=== PATIENT | female | born 1955 | race Caucasian/White ===

== ENCOUNTER 2021-02-04 13:44 | Outpatient (CLI) | payer OTHER | END 2021-02-04 13:45 | disposition home or self-care (01) | LOC: BURCT 13:44 | PROVIDERS: ATTEND Nurse Practitioner Family | DX: R51.9 Headache, unspecified (principal) | CPT/HCPCS: 70450 ==

== ENCOUNTER 2021-02-09 18:41 | Emergency (ER) | payer OTHER ==
[2021-02-09] MEDS ORDERED: hydrOXYzine 25 MG TAB ONE (19:28)
[2021-02-09 19:42] LABS: #Lymphocytes 0.8 thou/uL (1.20-3.40); #Monocytes 0.4 thou/uL (0.11-0.59); #Neutrophils 3.6 thou/uL (1.40-6.50); %Basophils 0.6 % (0.0-1.0); %Eosinophils 0.7 % (0.0-10.0); %Lymphocytes 15.7 % (21.0-51.0); %Monocytes 7.9 % (0.0-10.0); %Neutrophils 75.1 % (42.0-75.0); Hemoglobin 12.6 g/dL (12.0-16.0); Mean Corpuscular HGB CONC 35.9 g/dL (32.0-36.0); Mean Corpuscular Hemoglobin 33.9 pg (27.0-31.0); Mean Corpuscular Volume 94.2 fL (78.0-98.0); Mean Platelet Volume 6.3 fL (7.4-10.4); Platelet Count 155 thou/uL (130-400); RBC Distribution Width 11.9 % (11.5-14.5); Red Blood Cell (RBC) Count 3.72 mill/uL (4.20-5.40); White Blood Cell (WBC) Count 4.8 thou/uL (4.8-10.8)
[2021-02-09 19:43] LABS: ALT (SGPT) 34 U/L (8-55); AST (SGOT) 20 U/L (5-34); Albumin 4.3 g/dL (3.4-4.8); Alkaline Phosphatase 77 U/L (40-110); Anion Gap 15 mmol/L (10-20); BUN (Urea Nitrogen) 7 mg/dL (9.8-20.1); Bilirubin, Total 3.6 mg/dL (0.2-1.2); Calc. Creatinine Clearance 0 mL/min (70-130); Calcium 8.3 mg/dL (7.8-10.44); Carbon Dioxide 21 mmol/L (23-31); Chloride 99 mmol/L (98-107); Globulin 2.9 g/dL (2.4-3.5); Glucose 122 mg/dL (80-115); Potassium 3.3 mmol/L (3.5-5.1); Protein, Total 7.2 g/dL (5.8-8.1); Sodium 132 mmol/L (136-145)
[2021-02-09 19:44] LABS: Large Platelets SLIGHT; MDiff Complete? YES
== END 2021-02-09 20:40 | disposition home or self-care (01) ==
LOC: BURERS 18:41
DX: F41.9 Anxiety disorder, unspecified (principal); R55 Syncope and collapse; I10 Essential (primary) hypertension
CPT/HCPCS: 71045; 80053; 83880; 84443; 84484; 85025; 93005

== ENCOUNTER 2021-03-28 13:43 | Outpatient (CLI) | payer OTHER | END 2021-03-28 13:44 | disposition home or self-care (01) | LOC: BURRAD 13:43 | PROVIDERS: ATTEND Nurse Practitioner Family | DX: R22.2 Localized swelling, mass and lump, trunk (principal) | CPT/HCPCS: 71046 ==

== ENCOUNTER 2021-04-14 10:22 | Outpatient (CLI) | payer OTHER ==
[2021-04-14] MEDS ORDERED: Iopamidol 370 76% 100 ML VIAL ONE (12:11)
== END 2021-04-14 10:23 | disposition home or self-care (01) ==
LOC: BURCT 10:22
PROVIDERS: ATTEND Nurse Practitioner Family
DX: Z01.818 Encounter for other preprocedural examination (principal); R22.2 Localized swelling, mass and lump, trunk
CPT/HCPCS: 36415; 71260; 82565; Q9967

== ENCOUNTER 2022-02-28 16:42 | Emergency (ER) | payer MEDICARE ==
[2022-02-28] MEDS ORDERED: predniSONE 20 MG TAB ONE (17:57)
== END 2022-02-28 18:02 | disposition home or self-care (01) ==
LOC: BURERS 16:42
DX: J06.9 Acute upper respiratory infection, unspecified (principal); I10 Essential (primary) hypertension
CPT/HCPCS: 99283; J7512

== ENCOUNTER 2025-07-23 11:27 | Outpatient (CLI) | payer MEDICARE | END 2025-07-23 11:28 | disposition home or self-care (01) | LOC: BURRAD 11:27 | PROVIDERS: ATTEND Family Medicine | DX: M79.604 Pain in right leg (principal); G89.29 Other chronic pain; M47.816 Spondylosis without myelopathy or radiculopathy, lumbar region | CPT/HCPCS: 72100 ==

== ENCOUNTER 2025-08-02 18:27 | Emergency (ER) | payer MEDICARE ==
[2025-08-02] MEDS ORDERED: Ketorolac Tromethamine 30 MG (1 mL) VIAL ONE (19:04)
[2025-08-02] MEDS ORDERED: Oseltamivir 75 MG CAP ONE (19:05)
[2025-08-02 19:15] LABS: #Basophils 0.0 thou/uL (0.0-0.2); #Eosinophils 0.0 thou/uL (0.0-0.7); #Lymphocytes 0.5 thou/uL (1.20-3.40); #Monocytes 0.3 thou/uL (0.11-0.59); #Neutrophils 2.0 thou/uL (1.40-6.50); %Basophils 0.9 % (0.0-1.0); %Eosinophils 0.0 % (0.0-10.0); %Lymphocytes 17.4 % (21.0-51.0); %Monocytes 9.2 % (0.0-10.0); %Neutrophils 72.5 % (42.0-75.0); ALT (SGPT) 64 U/L (Less than 34); AST (SGOT) 70 U/L (11-34); Albumin 3.8 g/dL (3.1-4.5); Alkaline Phosphatase 113 U/L (40-110); Anion Gap 19 mmol/L (10-20); BUN (Urea Nitrogen) 18 mg/dL (9.8-20.1); Bilirubin, Total 1.3 mg/dL (0.3-1.2); Calc. Creatinine Clearance 0 mL/min (70-130); Calcium 8.7 mg/dL (7.8-10.44); Carbon Dioxide 18 mmol/L (23-31); Chloride 100 mmol/L (98-107); Globulin 3.4 g/dL (2.4-3.5); Glucose 113 mg/dL (80-115); Hematocrit 33.3 % (36.0-47.0); Hemoglobin 11.4 g/dL (12.0-16.0); Mean Corpuscular Hemoglobin 32.4 pg (27.0-31.0); Mean Corpuscular Volume 94.8 fl (78.0-98.0); Platelet Count 130 10x3/uL (130-400); Potassium 3.7 mmol/L (3.5-5.1); Red Blood Cell (RBC) Count 3.51 mill/uL (4.20-5.40); Sodium 133 mmol/L (136-145); White Blood Cell (WBC) Count 2.7 10x3/uL (4.8-10.8)
[2025-08-02 19:16] LABS: Troponin I 0.010 ng/mL (< 0.028)
== END 2025-08-02 21:20 | disposition home or self-care (01) ==
LOC: BURERS 18:27
DX: J11.1 Influenza due to unidentified influenza virus with other respiratory manifestations (principal); E86.0 Dehydration; I10 Essential (primary) hypertension; Z79.899 Other long term (current) drug therapy
CPT/HCPCS: 71046; 80053; 83605; 84484; 85025; 93005; 94760; 96361; 96374; J1885